=== PATIENT | male | born 1935 | race Caucasian/White ===

== ENCOUNTER → 2016-10-17 07:57 | Outpatient (CLI) | payer MEDICARE, BC ==
[2014-01-23 15:34] VITALS: BMI 27.8
[~2016-10-17 07:57] MED LIST: BAYER CHEWABLE81 MG PO; BENADRYL INJ50 MG/ML IV; COUMADIN7.5 MG PO; DULCOLAX10 MG/SUPP RC; HYDROCHLOROTH12.5 M1 PO; HYDROCODONE-APA1 TAB PO; LOPRESSOR25 MG PO; MILK OF MAGNESI30 ML PO; MIRALAX17 GM; PRILOSEC20 MG PO; SENOKOT-S TABLE1 TAB PO; XANAX1 MG PO; ZOCOR20 MG PO
== END | disposition home or self-care (01) ==
LOC: D.US 07:57
DX: L72.9 Follicular cyst of the skin and subcutaneous tissue, unspecified (principal)

== ENCOUNTER → 2016-10-25 07:58 | Outpatient (CLI) | payer MEDICARE, BC ==
[2014-01-23 15:34] VITALS: BMI 27.8
== END | disposition home or self-care (01) ==
LOC: D.RAD 07:58
DX: R13.19 Other dysphagia (principal)

== ENCOUNTER 2017-01-31 07:59 | Day surgery (SDC) | payer MEDICARE, BC ==
[~2017-01-31] VITALS: Ht 188 cm; Wt 95.9 kg
--- NOTE | ~2017-01-31 | OP ---
PATIENT NAME: CHOCO MEREDITH MEDICAL RECORD: [id number] :34 LOCATION:[facility] ADMISSION DATE: SURGEON: ELIA OWEN MD DATE OF OPERATION: 01/31/2017 SURGEON: Elia Owen MD PREOPERATIVE DIAGNOSIS: Intermittent dysphagia. POSTOPERATIVE DIAGNOSIS: Intermittent dysphagia. PROCEDURE PERFORMED: Esophagogastroduodenoscopy with cold biopsy. ANESTHESIA: Total intravenous anesthesia. COMPLICATIONS: None. SPECIMENS: 1. Gastric ulcer. 2. Duodenum. 3. Antrum. 4. GE junction. ESTIMATED BLOOD LOSS: Minimal. Case was contaminated. OPERATIVE COURSE: After consent was obtained, the patient was taken to the endoscopy suite. A timeout was taken to confirm the correct patient and procedure. Hurricaine [place] was administered. A bite block was placed. Total intravenous anesthesia was given. The patient was placed in left lateral decubitus position. The scope was inserted through the oropharynx and under direct endoscopic vision was advanced posterior to the epiglottis through the esophagus and into the stomach. Upon entering the stomach on the lesser curve, there was an area of ulceration noted. Multiple cold biopsies were taken at the base of the ulcer. The remaining portion of the stomach showed some mild gastritis. At this time, the scope was advanced through the pylorus. The duodenum appeared grossly normal. A single biopsy was taken of the duodenum. The scope was retracted through the pylorus. There were some mild antritis noted. Antral biopsies were obtained. The remaining portion of the stomach was inspected. There were no other ulcers identified. The scope was retroflexed. There was a moderate sized hiatal hernia. The stomach was then desufflated. The scope was then withdrawn through the GE junction. There were linear ulcerations noted consistent with grade I esophagitis. There was abnormal Z line, multiple biopsies were taken of the GE junction. The remaining portion of the esophagus revealed no masses, no lesions, no evidence of angiodysplasia. At this time, the scope was removed and the procedure was terminated and the patient was transferred to the recovery room in satisfactory condition. No complications occurred. TRANSINT:[id number] Voice Confirmation ID: [id number] DOCUMENT ID: [id number] OPERATIVE REPORT [id number] CHOCO MEREDITH ELIA OWEN MD CC: [id number] DICTATION DATE: 01/31/17 0952 RETAIL OFFICE ASSOCIATE: 01/31/17 1006 [facility] [address] [place] [address]
[2017-01-31] MEDS ORDERED: KLONOPIN1 MG PO (08:30)
[2017-01-31] MEDS ORDERED: ASPIRIN81 MG PO (08:30)
[2017-01-31 08:34] VITALS: BP 135/81; Ht 188 cm; Wt 95.9 kg
[2017-01-31 08:34] LABS: BASOPHILS 0.3 % (0-2); EOSINOPHILS 1.3 % (0-7); HEMATOCRIT 45.3 % (42.0-54.0); HEMOGLOBIN 15.5 g/dL (13.5-17.5); IMMATURE GRANULOCYTES 0.1 % (0-5); LYMPHOCYTES 30.6 % (15-50); MCH 31.7 pg (26.0-34.0); MCHC 34.2 g/dL (31.0-37.0); MCV 92.6 fL (80.0-100.0); MEAN PLATELET VOLUME 11.5 fL (7.4-10.4); MONOCYTES 12.8 % (2-11); NEUTROPHILS 54.9 % (40-80); PLATELET COUNT 204 10x3/uL (130-400); RBC 4.89 10x6/uL (4.20-6.10); RDW 13.1 % (11.5-14.5)
[2017-01-31 08:48] LABS: CALC OSMOLALITY 266 mosm/kg (275-300); CALCIUM 9.1 mg/dL (8.5-10.1); CARBON DIOXIDE 26.8 mmol/L (21.0-32.0); CHLORIDE - SERUM 100 mmol/L (98-107); CREATININE - SERUM 0.9 mg/dL (0.6-1.3); GLUCOSE 104 mg/dL (74-106); POTASSIUM - SERUM 4.1 mmol/L (3.5-5.1); SODIUM 134 mmol/L (136-145); UREA NITROGEN 11 mg/dL (7-18); eGFR NON AFRICAN AMERICAN 86 mL/min (90-120)
--- NOTE | 2017-01-31 10:43 | NUR ---
5586 DISCHARGE INSTRUCTIONS COMPLETE. PT HAS NO QUESTIONS OR CONCERNS AT THIS TIME. NO PRESCRIPTIONS GIVEN. FOLLOW UP APPOINTMENT MADE. ESCORTED OUT BY VOLUNTEER.
== END 2017-01-31 10:48 | disposition home or self-care (01) ==
LOC: D.OPS 07:59
PROVIDERS: Anesthesiology
DX: R13.10 Dysphagia, unspecified (principal); K44.9 Diaphragmatic hernia without obstruction or gangrene; K25.9 Gastric ulcer, unspecified as acute or chronic, without hemorrhage or perforation; I25.10 Atherosclerotic heart disease of native coronary artery without angina pectoris; I10 Essential (primary) hypertension; K21.9 Gastro-esophageal reflux disease without esophagitis; Z95.1 Presence of aortocoronary bypass graft; Z01.812 Encounter for preprocedural laboratory examination

== ENCOUNTER → 2017-02-26 07:04 | Outpatient (CLI) | payer MEDICARE, BC ==
[2017-01-31 08:34] VITALS: BMI 27.1
[~2017-02-26 07:04] MED LIST changes: +ASPIRIN81 MG PO; +CYTOMEL25 MCG PO; +HYDROCODON-ACE1 EAC7 PO; +KLONOPIN1 MG PO; +OS-CAL500 MG PO
== END | disposition home or self-care (01) ==
LOC: D.NM 02-21 08:00 → D.LAB 07:04 → D.NM 08:00
DX: D37.1 Neoplasm of uncertain behavior of stomach (principal)

== ENCOUNTER → 2017-03-15 10:29 | Outpatient (CLI) | payer MEDICARE, BC ==
[2017-01-31 08:34] VITALS: BMI 27.1
== END | disposition home or self-care (01) ==
LOC: D.US 10:29
DX: D37.1 Neoplasm of uncertain behavior of stomach (principal)

== ENCOUNTER → 2017-03-23 15:10 | Outpatient (CLI) | payer MEDICARE, BC ==
[2017-01-31 08:34] VITALS: BMI 27.1
== END | disposition home or self-care (01) ==
LOC: D.CT 15:10
DX: D37.1 Neoplasm of uncertain behavior of stomach (principal)

== ENCOUNTER 2017-04-02 05:12 | Day surgery (SDC) | payer MEDICARE, BC ==
[2017-03-30 14:14] LABS: CALC OSMOLALITY 261 mosm/kg (275-300); CALCIUM 8.6 mg/dL (8.5-10.1); CARBON DIOXIDE 24.6 mmol/L (21.0-32.0); CHLORIDE - SERUM 95 mmol/L (98-107); CREATININE - SERUM 0.9 mg/dL (0.6-1.3); GLUCOSE 80 mg/dL (74-106); POTASSIUM - SERUM 4.1 mmol/L (3.5-5.1); SODIUM 131 mmol/L (136-145); UREA NITROGEN 13 mg/dL (7-18); eGFR NON AFRICAN AMERICAN 86 mL/min (90-120)
[2017-03-30 14:37] LABS: BASOPHILS 0.2 % (0-2); EOSINOPHILS 1.2 % (0-7); HEMATOCRIT 43.3 % (42.0-54.0); HEMOGLOBIN 14.7 g/dL (13.5-17.5); IMMATURE GRANULOCYTES 0.2 % (0-5); LYMPHOCYTES 37.8 % (15-50); MCH 31.3 pg (26.0-34.0); MCHC 33.9 g/dL (31.0-37.0); MCV 92.1 fL (80.0-100.0); MEAN PLATELET VOLUME 11.9 fL (7.4-10.4); MONOCYTES 11.9 % (2-11); NEUTROPHILS 48.7 % (40-80); PLATELET COUNT 193 10x3/uL (130-400); RDW 12.8 % (11.5-14.5); WBC 6.7 10x3/uL (4.8-10.8)
[2017-03-30 17:03] LABS: T4 THYROXIN - FREE 0.94 ng/dL (0.76-1.46); THYROID STIMULATING HORMONE 4.54 uIU/mL (0.36-3.74)
[~2017-04-02] VITALS: Ht 188 cm; Wt 95.7 kg
[~2017-04-02 05:12] MED LIST changes: -CYTOMEL25 MCG PO; -HYDROCODON-ACE1 EAC7 PO; -OS-CAL500 MG PO
[2017-04-02 08:36] VITALS: BP 119/73; Ht 188 cm; Wt 95.7 kg
[2017-04-02] MEDS ORDERED: HYDROCODON-ACE1 EAC7 PO (11:52)
--- NOTE | 2017-04-02 12:10 | NUR ---
OPA IN AIRWAY ON ADMIT
--- NOTE | 2017-04-02 16:16 | OP ---
PATIENT NAME: CHOCO MEREDITH MEDICAL RECORD: [id number] :34 LOCATION:D[facility] ADMISSION DATE: SURGEON: ELIA OWEN MD DATE OF OPERATION: 04/02/2017 SURGEON: Elia Owen MD PREOPERATIVE DIAGNOSES: 1. Right thyroid nodule. 2. Carcinoid tumor. 3. Dysphagia POSTOPERATIVE DIAGNOSES: 1. Right thyroid nodule. 2. Carcinoid tumor. 3. Dysphagia PROCEDURE PERFORMED: Right thyroid lobectomy. ANESTHESIA: General. COMPLICATIONS: None. SPECIMENS: Right thyroid lobe. COMPLICATIONS: None. ESTIMATED BLOOD LOSS: 20 cc. Case was clean. OPERATIVE COURSE: After consent was obtained, the patient was taken to the operating room and placed in the supine position on the operating table. Next, general anesthesia was given via endotracheal intubation. Thereafter, a timeout was taken to confirm the correct patient and procedure. A shoulder roll was placed. The neck was prepped and draped in the typical sterile fashion. Local anesthetic was administered. External landmarks were identified. A transverse incision was made approximately 2 fingerbreadths above the sternal notch. Skin incisions made with a 15 blade scalpel. Dissection continued with electrocautery and through the platysma. The platysma was divided, the anterior jugular veins were identified. They were ligated with 3-0 silk suture, a Weitlaner retractor was placed. The strap muscles were divided in the median raphe with electrocautery. The strap muscles were bluntly dissected and retracted laterally. The right thyroid lobe was identified. A large nodule was present on the thyroid lobe, it was mobilized medially and the ligament of Lundberg was taken down with clips and Harmonic scalpel dissection. The superior parathyroid was identified and dissected off of the thyroid gland. Dissection went to ligament of Lundberg and superior parathyroid glands were dissected free. The gallbladder was further mobilized medially along the middle lobe. The middle thyroid artery and vein were identified and ligated with clips and the Harmonic scalpel. Dissection then continued in the inferior pole and the inferior vessels were identified as well as the inferior parathyroid gland. They were dissected off the inferior pole. Next, the dissection medially until the superior laryngeal nerve was identified. The superior laryngeal nerve was clearly identified entering the trachea. The thyroid was dissected off the OPERATIVE REPORT [id number] CHOCO MEREDITH remaining portion of thyroid was then dissected off the trachea using the Harmonic scalpel. Once the right thyroid lobe was removed, it was marked with stay sutures, short stitch superior and long stitch lateral and sent for permanent pathology. The wound was then packed with sterile gauze for approximately 5 minutes. The gauze was removed. Skin was copiously irrigated and suctioned. There is no evidence of bleeding. Surgicel was placed into the area of dissection. These strap muscles were reapproximated using 2-0 chromic suture. This platysma was reapproximated using 3-0 Vicryl suture. The skin was closed with 4-0 Stratafix, Mastisol and Steri-Strips.. At the end of the case, all needle and instrument counts were correct. No complications occurred. The patient was extubated and transferred to the PACU in stable condition. TRANSINT:[id number] Voice Confirmation ID: [id number] DOCUMENT ID: [id number] ELIA OWEN MD at 1616 CC: [id number] DICTATION DATE: 04/02/17 1159 SECRETARY TO THE VICE PRESIDENT: 04/02/17 1433 [facility] 04/02/17 [address] [place] [address]
== END 2017-04-02 15:05 | disposition home or self-care (01) ==
LOC: D.OPS 05:12 → D.PAN 10:15 → D.OPS 11:00
PROVIDERS: Anesthesiology; Surgery
DX: C73 Malignant neoplasm of thyroid gland (principal); R13.10 Dysphagia, unspecified; Z01.812 Encounter for preprocedural laboratory examination

== ENCOUNTER 2017-04-30 08:25 | Day surgery (SDC) | payer MEDICARE, BC ==
[~2017-04-30] VITALS: Ht 188 cm; Wt 95.9 kg
[~2017-04-30 08:25] MED LIST changes: +HYDROCODON-ACE1 EAC7 PO
[2017-04-30 09:58] LABS: BASOPHILS 0.3 % (0-2); EOSINOPHILS 1.3 % (0-7); HEMATOCRIT 42.9 % (42.0-54.0); HEMOGLOBIN 14.5 g/dL (13.5-17.5); IMMATURE GRANULOCYTES 0.2 % (0-5); LYMPHOCYTES 35.1 % (15-50); MCH 31.5 pg (26.0-34.0); MCHC 33.8 g/dL (31.0-37.0); MCV 93.1 fL (80.0-100.0); MEAN PLATELET VOLUME 11.6 fL (7.4-10.4); MONOCYTES 13.2 % (2-11); NEUTROPHILS 49.9 % (40-80); PLATELET COUNT 179 10x3/uL (130-400); RBC 4.61 10x6/uL (4.20-6.10); RDW 12.8 % (11.5-14.5)
[2017-04-30 10:14] LABS: ALBUMIN 3.4 g/dL (3.4-5.0); ALKALINE PHOSPHATASE 75 U/L (46-116); ALT (SGPT) 21 U/L (10-68); BILIRUBIN - TOTAL 0.66 mg/dL (0.2-1.3); CALC OSMOLALITY 260 mosm/kg (275-300); CALCIUM 8.4 mg/dL (8.5-10.1); CHLORIDE - SERUM 96 mmol/L (98-107); GLUCOSE 88 mg/dL (74-106); POTASSIUM - SERUM 3.9 mmol/L (3.5-5.1); PROTEIN - SERUM 6.5 g/dL (6.4-8.2); SODIUM 131 mmol/L (136-145); UREA NITROGEN 9 mg/dL (7-18); eGFR NON AFRICAN AMERICAN 76 mL/min (90-120)
[2017-04-30 10:45] VITALS: BP 139/86; Ht 188 cm; Wt 95.9 kg
--- NOTE | 2017-04-30 12:05 | NUR ---
PT REC'D TO ROOM VIA STRETCHER. AWAKE, ALERT, ORIENTED.
--- NOTE | 2017-04-30 12:30 | NUR ---
TOLERATED FULL LIQ DIET.
--- NOTE | 2017-04-30 12:45 | NUR ---
IV D/C'D CATH INTACT. PT UP TO DRESS.
--- NOTE | 2017-04-30 12:55 | NUR ---
D/C INSTRUCTIONS EXPLAINED TO PT. VOICED UNDERSTANDING. COPIES OF ALL GIVEN TO PT. D/C'D HOME VIA W/C TO PRIVATE CAR.
--- NOTE | 2017-04-30 13:36 | OP ---
PATIENT NAME: CHOCO MEREDITH MEDICAL RECORD: [id number] :34 LOCATION:D.[facility] ADMISSION DATE: SURGEON: ELIA OWEN MD DATE OF OPERATION: 04/30/2017 DATE OF PROCEDURE: 04/30/2017 SURGEON: Elia Owen MD PREOPERATIVE DIAGNOSES: 1. Gastric carcinoid tumor. 2. Intermittent dysphagia. 3. Papillary thyroid carcinoma. POSTOPERATIVE DIAGNOSES: 1. Gastric carcinoid tumor. 2. Intermittent dysphagia. 3. Papillary thyroid carcinoma. PROCEDURE PERFORMED: EGD with biopsy and Meaghan ink staining. ANESTHESIA: Total intravenous anesthesia. COMPLICATIONS: None. SPECIMENS: Gastric biopsy times 3. Case was contaminated. OPERATIVE COURSE: After consent was obtained, the patient was taken to the endoscopy suite. A timeout was taken to confirm the correct patient and procedure. Total intravenous anesthesia was given. Hurricaine spray was administered, a biteblock was placed. The endoscope was passed through the biteblock, it was passed posterior into the posterior oropharynx under direct endoscopic vision, passed posterior to the epiglottis, advanced through the esophagus under direct endoscopic vision into the stomach. The stomach was insufflated. The area of previous biopsy was identified. At this time, multiple cold biopsies of the area were taken. The submucosa was injected with Meaghan ink approximately 4 cc. The remaining portion of the stomach was examined. There were no other areas of abnormality. There was some mild gastritis noted. The scope was retroflexed. There was no hiatal hernia noted. The scope was advanced through the pylorus into the duodenum. No duodenal abnormalities were identified. The stomach was then desufflated. The scope was withdrawn to the GE junction. There was some mild esophagitis noted. There was some grade II linear esophagitis with abnormality of the Z line. The esophagus was examined upon withdrawal of the scope. There were no abnormalities of the esophagus noted. At this time, the scope was removed, the procedure was terminated. The patient tolerated the procedure well and was transferred to recovery room in stable condition. TRANSINT:[id number] Voice Confirmation ID: [id number] DOCUMENT ID: [id number] OPERATIVE REPORT [id number] CHOCO MEREDITH ELIA OWEN MD at 1334 CC: [id number] DICTATION DATE: 04/30/17 1141 BEER COIL CLEANER: 04/30/17 1213 [address] [facility] [address] [facility] [address]
== END 2017-04-30 13:00 | disposition home or self-care (01) ==
LOC: D.OPS 08:25
PROVIDERS: Surgery
DX: D3A.092 Benign carcinoid tumor of the stomach (principal); K29.70 Gastritis, unspecified, without bleeding; K20.9 Esophagitis, unspecified; R13.10 Dysphagia, unspecified; C73 Malignant neoplasm of thyroid gland; Z01.812 Encounter for preprocedural laboratory examination

== ENCOUNTER 2017-05-21 05:16 | Day surgery (SDC) | payer MEDICARE, BC ==
[2017-05-18 09:21] LABS: HEMATOCRIT 44.8 % (42.0-54.0); HEMOGLOBIN 15.4 g/dL (13.5-17.5); MCH 31.5 pg (26.0-34.0); MCHC 34.4 g/dL (31.0-37.0); MCV 91.6 fL (80.0-100.0); PLATELET COUNT 162 10x3/uL (130-400); RBC 4.89 10x6/uL (4.20-6.10); WBC 4.1 10x3/uL (4.8-10.8)
[2017-05-18 09:28] LABS: CALC OSMOLALITY 254 mosm/kg (275-300); CALCIUM 8.2 mg/dL (8.5-10.1); CARBON DIOXIDE 25.7 mmol/L (21.0-32.0); CHLORIDE - SERUM 92 mmol/L (98-107); GLUCOSE 94 mg/dL (74-106); POTASSIUM - SERUM 3.6 mmol/L (3.5-5.1); SODIUM 127 mmol/L (136-145); UREA NITROGEN 12 mg/dL (7-18); eGFR NON AFRICAN AMERICAN 76 mL/min (90-120)
[2017-05-18 09:33] LABS: APTT 31.9 SECONDS (22.8-39.4); INR 1.1 (0.85-1.17); PROTIME 13.8 SECONDS (11.6-15.0)
[2017-05-18 09:51] LABS: LYMPHOCYTES 34 % (15-50); MONOCYTES 20 % (2-11); NEUTROPHILS 41 % (40-80); PLATELET ESTIMATE NORMAL
[2017-05-18 09:52] LABS: ROULEAUX OCC
[~2017-05-21] VITALS: Ht 188 cm; Wt 96.2 kg
--- NOTE | ~2017-05-21 | OP ---
PATIENT NAME: CHOCO MEREDITH MEDICAL RECORD: [id number] :34 LOCATION:D[facility] ADMISSION DATE: SURGEON: ELIA OWEN MD DATE OF OPERATION: 05/21/2017 SURGEON: Elia Owen MD PREOPERATIVE DIAGNOSIS: Papillary thyroid carcinoma. POSTOPERATIVE DIAGNOSIS: Papillary thyroid carcinoma. PROCEDURE PERFORMED: Completion (left) thyroidectomy. ANESTHESIA: General. COMPLICATIONS: None. ESTIMATED BLOOD LOSS: 40 cc. Case was clean. SPECIMENS: Left thyroid. OPERATIVE COURSE: After consent was obtained, the patient was taken to the operating room and placed in the supine position on the operating table. Next, the neck was prepped and draped in typical sterile fashion. A timeout was taken to confirm the correct patient and procedure. Local anesthetic was administered at the previous neck incision. The previous neck incision was then opened with a 15 blade scalpel. Dissection continued with electrocautery through the platysma. The platysma was grabbed with Allis clamps. Subplatysmal flaps were created. The high muscles were identified. The median raphe late was opened using electrocautery. The muscles were retracted laterally and the thyroid space was bluntly dissected. Self-retaining retractor was placed. The left thyroid was mobilized from lateral to medial. Dissection was performed with right-angle dissectors. The left inferior parathyroid vessels and parathyroid gland was identified. The vessels were ligated with clip drapery examiner and ligated with the Harmonic scalpel. Next, the middle thyroid veins were identified. Again, they were clipped proximal and ligated with Harmonic scalpel as well as the superior thyroid vessels. Careful attention was made to dissect around the superior left parathyroid gland, which was left intact. The ligament of Lundberg was taken with the Harmonic scalpel. Dissection continued along the superior portion of the left thyroid lobe and extended towards the trachea. At this time, the left inferior parathyroid gland was again dissected off the thyroid and the inferior pole was mobilized towards the trachea. Careful dissection was performed until the superior laryngeal nerve was identified. It was dissected until it was seen tracking into the trachea. At this time, the remaining portion of the thyroid was taken with the Harmonic scalpel. It was ligated off the trachea with the Harmonic scalpel. Specimen was marked with a short stitch superior and long stitch anterior and sent for permanent pathology. Next, the operative site was copiously irrigated and suctioned. Hemostasis was obtained with electrocautery and clip application. Again, the superior laryngeal nerve was noted in its entirety without injury. At this time, the strap muscles were reapproximated with chromic suture. The platysma was reapproximated with 3-0 Vicryl. Skin was closed with 3-0 Stratafix, Mastisol, and Steri-Strips. At the end of the case, all needle and instrument counts were correct. No OPERATIVE REPORT [id number] CHOCO MEREDITH complications occurred. The patient was extubated and transferred to the PACU in stable condition. TRANSINT:[id number] Voice Confirmation ID: [id number] DOCUMENT ID: [id number] ELIA OWEN MD at 1831 CC: [id number] DICTATION DATE: 05/21/17 0939 GRINDER SET UP OPERATOR THREAD: 05/21/17 1208 [address] [place] [address]
[2017-05-21 06:04] VITALS: BP 125/74; Ht 188 cm; Wt 96.2 kg
[2017-05-21 10:31] LABS: ALBUMIN 3.1 g/dL (3.4-5.0); CALCIUM 8.1 mg/dL (8.5-10.1)
[2017-05-21 19:09] LABS: ALBUMIN 3.1 g/dL (3.4-5.0); CALCIUM 7.8 mg/dL (8.5-10.1)
[2017-05-21 20:00] VITALS: BP 149/82
[2017-05-22 02:11] LABS: ALBUMIN 2.9 g/dL (3.4-5.0)
[2017-05-22 08:07] VITALS: BP 133/68
[2017-05-22] MEDS ORDERED: OS-CAL500 MG PO (08:17)
[2017-05-22] MEDS ORDERED: CYTOMEL25 MCG PO (08:17)
[2017-05-22] MEDS ORDERED: HYDROCODON-ACE1 EAC7 PO (08:17)
== END 2017-05-22 09:40 | disposition home or self-care (01) ==
LOC: D.OPS 05:16 → D.PAN 08:00 → D.MS 16:45 → D.OPS 05-22 09:40
PROVIDERS: Anesthesiology; Surgery
DX: C73 Malignant neoplasm of thyroid gland (principal); I25.10 Atherosclerotic heart disease of native coronary artery without angina pectoris; I10 Essential (primary) hypertension; Z95.1 Presence of aortocoronary bypass graft; Z01.812 Encounter for preprocedural laboratory examination

== ENCOUNTER → 2017-06-06 08:35 | Outpatient (CLI) | payer MEDICARE, BC ==
[2017-05-21 06:04] VITALS: BMI 27.2
[~2017-06-06 08:35] MED LIST changes: +CYTOMEL25 MCG PO; +OS-CAL500 MG PO
[2017-06-06 10:02] LABS: ALBUMIN 3.4 g/dL (3.4-5.0); CALCIUM 8.4 mg/dL (8.5-10.1); THYROID STIMULATING HORMONE 18.77 uIU/mL (0.36-3.74)
== END | disposition home or self-care (01) ==
LOC: D.LAB 08:35
PROVIDERS: Surgery
DX: E03.9 Hypothyroidism, unspecified (principal); E20.9 Hypoparathyroidism, unspecified

== ENCOUNTER → 2017-09-26 09:35 | Outpatient (CLI) | payer MEDICARE, BC ==
[2017-05-21 06:04] VITALS: BMI 27.2
== END | disposition home or self-care (01) ==
LOC: D.CT 09:00
DX: D37.1 Neoplasm of uncertain behavior of stomach (principal)

== ENCOUNTER 2018-02-18 06:02 | Day surgery (SDC) | payer MEDICARE, BC ==
[~2018-02-18] VITALS: Ht 188 cm; Wt 91.8 kg
--- NOTE | ~2018-02-18 | OP ---
PATIENT NAME: CHOCO MEREDITH MEDICAL RECORD: [id number] :34 LOCATION:D[facility] ADMISSION DATE: SURGEON: ELIA OWEN MD DATE OF OPERATION: 02/18/2018 SURGEON: Elia Owen MD PREOPERATIVE DIAGNOSIS: Carcinoid tumor of the stomach. POSTOPERATIVE DIAGNOSIS: Carcinoid tumor of stomach. PROCEDURE PERFORMED: EGD with biopsy and Meaghan ink staining. ANESTHESIA: Total intravenous anesthesia. COMPLICATIONS: None. SPECIMENS: Gastric biopsy. OPERATIVE COURSE: After consent was obtained, Hurricaine [place] was administered. Bite block was placed. Total intravenous anesthesia was administered. The scope was passed through the bite block into the posterior oropharynx under direct laparoscopic vision, it was passed posterior to the epiglottis, advanced into the esophagus and to the stomach. A xssey-ds-vukebpro size hiatal hernia was noted. There was significant reflux esophagitis noted with abnormality at the Z-line. Scope was advanced in the stomach. In the proximal portion of the stomach, the area of previous concern was identified, it was biopsied. At this time, it was biopsied with multiple cold biopsies. It was then stained with Meaghan ink. The remaining portion of the stomach appeared within normal limits. The scope was then passed to the distal stomach. The pylorus appeared within normal limits. The duodenum appeared within normal limits. The scope was withdrawn to the stomach, retroflexed views were obtained. Again, noticed a small to moderate sized hiatal hernia. The stomach was desufflated and the scope was withdrawn. Upon withdrawal of the scope, the esophagus was again examined. There were no abnormalities of the esophagus with normal appearing motility. At this time, the gastroscope was removed and the procedure was terminated. The patient tolerated the procedure well. He was transferred to the recovery room in satisfactory condition. TRANSINT:[id number] Voice Confirmation ID: [id number] DOCUMENT ID: [id number] ELIA OWEN MD at 0909 CC: [id number] DICTATION DATE: 02/18/18830 REFRIGERATION PERSON: 02/18/18903 [facility] [address] [place] [address]
[2018-02-18 06:20] LABS: BASOPHILS 0.3 % (0-2); EOSINOPHILS 2.6 % (0-7); HEMATOCRIT 42.9 % (42.0-54.0); HEMOGLOBIN 14.8 g/dL (13.5-17.5); IMMATURE GRANULOCYTES 0.2 % (0-5); LYMPHOCYTES 33.8 % (15-50); MCH 31.6 pg (26.0-34.0); MCHC 34.5 g/dL (31.0-37.0); MCV 91.7 fL (80.0-100.0); MEAN PLATELET VOLUME 10.9 fL (7.4-10.4); MONOCYTES 13.3 % (2-11); NEUTROPHILS 49.8 % (40-80); PLATELET COUNT 192 10x3/uL (130-400); RBC 4.68 10x6/uL (4.20-6.10); RDW 12.6 % (11.5-14.5); WBC 6.5 10x3/uL (4.8-10.8)
[2018-02-18 06:36] LABS: CALC OSMOLALITY 265 mosm/kg (275-300); CALCIUM 8.9 mg/dL (8.5-10.1); CARBON DIOXIDE 26.8 mmol/L (21.0-32.0); CHLORIDE - SERUM 98 mmol/L (98-107); GLUCOSE 100 mg/dL (74-106); POTASSIUM - SERUM 4.3 mmol/L (3.5-5.1); SODIUM 133 mmol/L (136-145); UREA NITROGEN 13 mg/dL (7-18); eGFR NON AFRICAN AMERICAN 76 mL/min (90-120)
[2018-02-18 06:51] LABS: APTT 28.8 SECONDS (22.8-39.4); INR 1.12 (0.85-1.17)
[2018-02-18] MEDS ORDERED: LEVOTHYROXINE125 MCG PO (07:10)
[2018-02-18 07:18] VITALS: BP 138/77; Ht 188 cm; Wt 91.8 kg
[2018-03-04] MEDS ORDERED: TOPROL XL25 MG PO (09:29)
[2018-03-04] MEDS ORDERED: METOPROLOL TART25 MG PO (09:30)
== END 2018-02-18 09:36 | disposition home or self-care (01) ==
LOC: D.OPS 06:02
PROVIDERS: Anesthesiology
DX: C7A.092 Malignant carcinoid tumor of the stomach (principal); Z01.812 Encounter for preprocedural laboratory examination

== ENCOUNTER 2018-03-06 07:25 | Inpatient (IN) | payer MEDICARE, BC ==
[2018-03-04 09:57] LABS: BASOPHILS 0.3 % (0-2); EOSINOPHILS 1.6 % (0-7); HEMATOCRIT 41.4 % (42.0-54.0); IMMATURE GRANULOCYTES 0.1 % (0-5); LYMPHOCYTES 36.4 % (15-50); MCHC 33.8 g/dL (31.0-37.0); MCV 91.6 fL (80.0-100.0); MONOCYTES 13.5 % (2-11); NEUTROPHILS 48.1 % (40-80); PLATELET COUNT 214 10x3/uL (130-400); RBC 4.52 10x6/uL (4.20-6.10); RDW 12.8 % (11.5-14.5); WBC 7.4 10x3/uL (4.8-10.8)
[2018-03-04 10:13] LABS: CALC OSMOLALITY 263 mosm/kg (275-300); CALCIUM 8.4 mg/dL (8.5-10.1); CARBON DIOXIDE 28.2 mmol/L (21.0-32.0); CHLORIDE - SERUM 98 mmol/L (98-107); CREATININE - SERUM 0.9 mg/dL (0.6-1.3); GLUCOSE 72 mg/dL (74-106); POTASSIUM - SERUM 4.4 mmol/L (3.5-5.1); SODIUM 132 mmol/L (136-145); UREA NITROGEN 13 mg/dL (7-18); eGFR NON AFRICAN AMERICAN 85 mL/min (90-120)
[2018-03-04 10:17] LABS: APTT 30.7 SECONDS (22.8-39.4); INR 1.18 (0.85-1.17); PROTIME 14.6 SECONDS (11.6-15.0)
[~2018-03-06] VITALS: Ht 185.4 cm; Wt 91.6 kg
--- NOTE | ~2018-03-06 | MORECARE ---
CASE MANAGEMENT DISCHARGE SUMMARY PATIENT: CHOCO MEREDITH UNIT: [id number] ADM DATE: 03/06/18 AGE: 82 : 34 SEX: M ROOM/BED: D.2231 AUTHOR: GUILLEDOC PHYSICIAN: REFERRING PHYSICIAN: ELIA OWEN MD DATE OF SERVICE: 03/11/18 Discharge Plan Patient Name: CHOCO MEREDITH Facility: [facility]:[place] : 1935 Planned Disposition: Home Anticipated Discharge Date: 03/08/18 Discharge Date: 03/08/2018 Expected LOS: 2 Initial Reviewer: [email or web address] Initial Review Date: 03/08/2018 Generated: 03/11/18 5:34 pm Comments DCP- Discharge Planning Updated by [email or web address]: Jessica Camp on 03/08/18 8:[address] Patient Name: CHOCO MEREDITH Admission Status: Elective Accout number: [id number] Admission Date: 03-06-2018 : 1935 Admission Diagnosis: Attending: ELIA OWEN Current LOS: 2 Anticipated DC Date: 03-08-2018 Planned Disposition: Home Primary Insurance: MEDICARE A & B Discharge Planning Comments: CM met with patient and his to discuss discharge planning. States he lives with his . States he has been independent with all ADL's and IADL's. States his will drive him home. Discussed availability of home health services, patient declines. He states he has had home health in the past and does not think he needs it now. He will ambulate with his walker. His states she has his walker in the car. States his pharmacy sets up his medication in weekly packets and time he takes it. Declines need for further DME. Discharging home today. CM will continue to assist with discharge planning/needs. Special Warfare Combatant Crewman: Jessica Camp DCPIA - Discharge Planning Initial Assessment Updated by [email or web address]: Jessica Camp on 03/08/18 9:33 am * Is the patient Alert and Oriented? Yes * How many steps to enter\exit or inside your home? 2/0 * PCP Dr. Howard * Pharmacy [facility] [address] * Preadmission Environment Home with Family * ADLs Independent * Equipment Cane Walker * List name and contact numbers for known caregivers / representatives who currently or will assist patient after discharge: Karey - sqdd - [phone] * Verbal permission to speak to the caregivers and representatives has been obtained from the patient. Yes * Community resources currently utilized None * Additional services required to return to the preadmission environment? No * Can the patient safely return to the preadmission environment? Yes * Has this patient been hospitalized within the prior 30 days at any hospital? No Last DP export: 03/08/18 8:43 Patient Name: CHOCO MEREDITH Page [id number] at 1634 All edits/amendments must be made on the electronic document DICTATION DATE: 03/11/181632 RENTAL CAR PORTER: ZENON 03/11/181632 RPT#: [id number] DC DATE:03/08/18 STATUS: DIS IN [facility] [address] [place] [address] END OF REPORT
--- NOTE | ~2018-03-06 | MORECARE ---
CASE MANAGEMENT DISCHARGE SUMMARY PATIENT: CHOCO MEREDITH UNIT: [id number] ADM DATE: 03/06/18 AGE: 82 : 34 SEX: M ROOM/BED: D.2231 AUTHOR: GUILLEDOC PHYSICIAN: REFERRING PHYSICIAN: ELIA OWEN MD DATE OF SERVICE: 03/08/18 Discharge Plan Patient Name: CHOCO MEREDITH Facility: [facility]:[place] : 1935 Planned Disposition: Home Anticipated Discharge Date: 03/08/18 Discharge Date: Expected LOS: 2 Initial Reviewer: [email or web address] Initial Review Date: 03/08/2018 Generated: 03/08/18 10:43 am Comments DCP- Discharge Planning Updated by [email or web address]: Jessica Camp on 03/08/18 8:[address] Patient Name: CHOCO MEREDITH Admission Status: Elective Accout number: [id number] Admission Date: 03-06-2018 : 1935 Admission Diagnosis: Attending: ELIA OWEN Current LOS: 2 Anticipated DC Date: 03-08-2018 Planned Disposition: Home Primary Insurance: MEDICARE A & B Discharge Planning Comments: CM met with patient and his to discuss discharge planning. States he lives with his . States he has been independent with all ADL's and IADL's. States his will drive him home. Discussed availability of home health services, patient declines. He states he has had home health in the past and does not think he needs it now. He will ambulate with his walker. His states she has his walker in the car. States his pharmacy sets up his medication in weekly packets and time he takes it. Declines need for further DME. Discharging home today. CM will continue to assist with discharge planning/needs. Construction Specialist: Jessica Camp DCPIA - Discharge Planning Initial Assessment Updated by [email or web address]: Jessica Camp on 03/08/18 9:33 am * Is the patient Alert and Oriented? Yes * How many steps to enter\exit or inside your home? 2/0 * PCP Dr. Howard * Pharmacy [facility] on [address] * Preadmission Environment Home with Family * ADLs Independent * Equipment Cane Walker * List name and contact numbers for known caregivers / representatives who currently or will assist patient after discharge: Karey Stoddard wiyt - [phone] * Verbal permission to speak to the caregivers and representatives has been obtained from the patient. Yes * Community resources currently utilized None * Additional services required to return to the preadmission environment? No * Can the patient safely return to the preadmission environment? Yes * Has this patient been hospitalized within the prior 30 days at any hospital? No Last DP export: 03/08/18 8:36 Patient Name: CHOCO MEREDITH Page [id number] at 0943 All edits/amendments must be made on the electronic document DICTATION DATE: 03/08/18942 STARS SPECIALIST: ZENON 03/08/18942 RPT#: [id number] DC DATE: STATUS: ADM IN [facility] [address] [place] [address] END OF REPORT
--- NOTE | ~2018-03-06 | MORECARE ---
CASE MANAGEMENT DISCHARGE SUMMARY PATIENT: CHOCO MEREDITH UNIT: [id number] ADM DATE: 03/06/18 AGE: 82 : 34 SEX: M ROOM/BED: D.2231 AUTHOR: HENRI HAN PHYSICIAN: REFERRING PHYSICIAN: ELIA OWEN MD DATE OF SERVICE: 03/08/18 Discharge Plan Patient Name: CHOCO MEREDITH [facility] [facility] 1935 Planned Disposition: Home Anticipated Discharge Date: 03/08/18 Discharge Date: Expected LOS: 2 Initial Reviewer: [email or web address] Initial Review Date: 03/08/2018 Generated: 03/08/18 10:36 am DCPIA - Discharge Planning Initial Assessment Updated by [email or web address]: Jessica Camp on 03/08/18 9:33 am * Is the patient Alert and Oriented? Yes * How many steps to enter\exit or inside your home? 2/0 * PCP Dr. Howard * Pharmacy [facility] * Preadmission Environment Home with Family * ADLs Independent * Equipment Cane Walker * List name and contact numbers for known caregivers / representatives who currently or will assist patient after discharge: Karey - ihyp - [phone] * Verbal permission to speak to the caregivers and representatives has been obtained from the patient. Yes * Community resources currently utilized None * Additional services required to return to the preadmission environment? No * Can the patient safely return to the preadmission environment? Yes * Has this patient been hospitalized within the prior 30 days at any hospital? No Patient Name: CHOCO MEREDITH Page [id number] at 0936 All edits/amendments must be made on the electronic document DICTATION DATE: 03/08/18934 ROTARY ENVELOPE MACHINE OPERATOR: ZENON 03/08/18934 RPT#: [id number] DC DATE: STATUS: ADM IN [facility] [address] [place] [address] END OF REPORT
[~2018-03-06 07:25] MED LIST changes: +LEVOTHYROXINE125 MCG PO; +METOPROLOL TART25 MG PO; +TOPROL XL25 MG PO
[2018-03-06] MEDS ORDERED: TOPROL XL25 MG (07:55)
[2018-03-06 08:18] VITALS: BP 136/68; BMI 27.6
[2018-03-06 17:14] VITALS: BP 141/84
[2018-03-06 19:33] VITALS: BP 143/90; BMI 26.7
[2018-03-06 20:00] VITALS: BP 121/75
[2018-03-07 04:00] VITALS: BP 118/85
[2018-03-07 05:47] LABS: BASOPHILS 0.1 % (0-2); EOSINOPHILS 0.1 % (0-7); HEMATOCRIT 37.1 % (42.0-54.0); HEMOGLOBIN 12.3 g/dL (13.5-17.5); IMMATURE GRANULOCYTES 0.2 % (0-5); MCH 30.7 pg (26.0-34.0); MCHC 33.2 g/dL (31.0-37.0); MCV 92.5 fL (80.0-100.0); MEAN PLATELET VOLUME 11.3 fL (7.4-10.4); NEUTROPHILS 72.6 % (40-80); PLATELET COUNT 208 10x3/uL (130-400); RBC 4.01 10x6/uL (4.20-6.10); RDW 13.1 % (11.5-14.5); WBC 10.5 10x3/uL (4.8-10.8)
[2018-03-07 06:05] LABS: ALKALINE PHOSPHATASE 64 U/L (46-116); ALT (SGPT) 23 U/L (10-68); BILIRUBIN - TOTAL 0.99 mg/dL (0.2-1.3); CALC OSMOLALITY 260 mosm/kg (275-300); CARBON DIOXIDE 26.9 mmol/L (21.0-32.0); CHLORIDE - SERUM 96 mmol/L (98-107); CREATININE - SERUM 0.8 mg/dL (0.6-1.3); POTASSIUM - SERUM 4.3 mmol/L (3.5-5.1); PROTEIN - SERUM 6.1 g/dL (6.4-8.2); SODIUM 130 mmol/L (136-145); UREA NITROGEN 9 mg/dL (7-18); eGFR NON AFRICAN AMERICAN > 90 mL/min (90-120)
[2018-03-07 06:12] LABS: GLUCOSE 117 mg/dL (74-106)
[2018-03-07 08:34] VITALS: BP 93/54
[2018-03-07 14:05] VITALS: Ht 185.4 cm; Wt 91.6 kg
[2018-03-07 15:45] VITALS: BP 104/62
[2018-03-07 20:00] VITALS: BP 121/58
[2018-03-08] VITALS: BP 142/69
[2018-03-08 04:00] VITALS: BP 100/54; BP 122/63
[2018-03-08] MEDS ORDERED: HYDROCODON-ACE1 EAC7 PO (07:16)
[2018-03-08] MEDS ORDERED: ZOFRAN ODT4 MG/UDTAB PO (07:17)
[2018-03-08 07:38] LABS: HEMATOCRIT 30.4 % (42.0-54.0); HEMOGLOBIN 10.3 g/dL (13.5-17.5); LYMPHOCYTES 14.8 % (15-50); MCH 30.7 pg (26.0-34.0); MCHC 33.9 g/dL (31.0-37.0); MCV 90.7 fL (80.0-100.0); MEAN PLATELET VOLUME 10.9 fL (7.4-10.4); NEUTROPHILS 73.5 % (40-80); RBC 3.35 10x6/uL (4.20-6.10); WBC 10.4 10x3/uL (4.8-10.8)
[2018-03-08] MEDS ORDERED: FLOMAX0.4 MG PO (07:38)
[2018-03-08 07:50] LABS: PLATELET COUNT 162 10x3/uL (130-400)
[2018-03-08 07:54] LABS: CALC OSMOLALITY 255 mosm/kg (275-300); CALCIUM 7.8 mg/dL (8.5-10.1); CARBON DIOXIDE 25.6 mmol/L (21.0-32.0); CHLORIDE - SERUM 94 mmol/L (98-107); CREATININE - SERUM 0.7 mg/dL (0.6-1.3); GLUCOSE 107 mg/dL (74-106); SODIUM 128 mmol/L (136-145); UREA NITROGEN 9 mg/dL (7-18); eGFR NON AFRICAN AMERICAN > 90 mL/min (90-120)
[2018-03-08 07:55] VITALS: BP 104/50
[2018-03-08 07:56] LABS: POTASSIUM - SERUM 3.5 mmol/L (3.5-5.1)
== END 2018-03-08 12:40 | disposition home or self-care (01) | DRG 355 ==
LOC: D.MS 07:25 → D.SDCHOLD 07:25 → D.MS 14:52
PROVIDERS: Anesthesiology; Surgery
PROC: 0DB64ZZ Excision of Stomach, Percutaneous Endoscopic Approach (ICD-10-PCS; principal; 2018-03-06 09:45)
PROC: 0WQF4ZZ Repair Abdominal Wall, Percutaneous Endoscopic Approach (ICD-10-PCS; 2018-03-06 09:45)
DX: C16.9 Malignant neoplasm of stomach, unspecified (principal); C73 Malignant neoplasm of thyroid gland